=== PATIENT | male | born 1980 | race Caucasian/White ===

== ENCOUNTER 2021-02-03 21:10 | Inpatient (IN) | payer MEDICAID, SELFPAY ==
[2021-02-03 21:11] VITALS: BP 132/81; PULSE 100; RESP 18; TEMP 36.3; O2SAT 98; BMI 22.8
--- NOTE | 2021-02-03 23:29 | EKG12_ITS ---
Test Reason : SUBSTANCE ABUSE Blood Pressure : / mmHG Vent. Rate : 064 BPM Atrial Rate : 064 BPM P-R Int : 128 ms QRS Dur : 090 ms QT Int : 372 ms P-R-T Axes : -05 053 049 degrees QTc Int : 383 ms Normal sinus rhythm Normal ECG Confirmed by SOTO VELOZ, RAMAN ([id number]), health editor HANNA PHILLIPS ([id number]) on 02/09/2021 6:38:04 AM Referred By: NICHOLAS Confirmed By:RAMAN VALERA MD
--- NOTE | 2021-02-03 23:29 | EX.ED.DYSGE1 ---
HPI History of Present Illness Chief Complaint: Substance Abuse Informant: patient Narrative Narrative: 40-year-old male originally from [place] has been living in [place] for the last couple years heard about a [facility] recovery program here in [place]. He showed up in [place] today. He states that they told him about the alcohol detox program here at the hospital and he would like detox from alcohol. He notes his last alcoholic drink was around 0100 hours. He states he drinks 7-8 beers a day as well as a pint of liquor. He feels generally itchy. He notes he is an epileptic and takes Dilantin at night [facility] Medical History (Updated 02/03/21 @ 23:51 by Crista Wood) Anxiety Depression Epilepsy Home Medications phenytoin sodium extended [Dilantin Extended] 300 mg PO DAILY 02/03/21 [History Last Taken Unknown] Allergy/AdvReac Type Severity Reaction Status Date / Time No Known Allergies Allergy Verified 02/03/21 23:50 Social History (Updated 02/03/21 @ 23:[address] Chandan Harper, ) Smoking Status: Current every day smoker tobacco type: cigarettes alcohol intake: current alcohol intake frequency: 3 or more drinks per day ROS ROS ED Constitutional Constitutional ED: Denies chills or weight loss Eyes Eyes: Denies change in vision or diplopia ENT ENT ED: Denies ear pain, rhinorrhea or sore throat Cardiovascular Cardiovascular: Denies chest pain, orthopnea, palpitations or racing heartbeat Respiratory/Chest Respiratory/Chest: Denies cough, dyspnea or orthopnea Gastrointestinal Gastrointestinal: Reports nausea; Denies abdominal pain, diarrhea or vomiting Genitourinary Genitourinary ED: Denies dysuria, hematuria or urinary frequency Musculoskeletal Musculoskeletal: Denies arthralgias or myalgias Integumentary Reports other Details: Pruritus ; Denies abscess or rash Neurologic Neurologic: Denies headache(s) or weakness Psychiatric Psychiatric: Denies anxiety, depression, suicidal ideation or suicidal thoughts Endocrine Endocrinology: Denies polydipsia, polyphagia or polyuria Allergic/Immunologic Allergic/Immunologic ED: Denies mouth swelling, tongue swelling or urticaria EXAM Physical Exam Const Vital Signs: 02/03/21 21:11 Temperature 97.3 F L Temperature Source Temporal Pulse Rate 100 Respiratory Rate 18 Blood Pressure 132/81 H Blood Pressure Mean 98 Pulse Ox 98 Oxygen Delivery Method Room Air Positive well nourished and well developed General Appearance ED: well developed HEENT Reports normocephalic, head/scalp atraumatic and moist mucous membranes Eyes PERRL and EOMs intact bilaterally Neck no lymphadenopathy, supple and no JVD Resp normal respiratory effort and clear to auscultation bilaterally Cardio regular rate, regular rhythm and no murmurs GI normal to inspection, nondistended, normoactive bowel sounds and non-tender Palpation: soft Back/Spine no CVA tenderness and normal ROM Extremity normal to inspection General Extremety ED: Negative for edema General Extremity: Negative for edema Neuro oriented x3 and CN's II-XII intact bilaterally Sensorium / Orientation: alert Motor Exam: strength 5/5 throughout Psych mental status grossly normal Mood & Affect: Negative for depressed or tearful Skin no rashes or lesions noted and no wounds MDM MDM MDM Narrative Medical decision making narrative: Patient agrees to the rules of the program. I will speak with the hospitalist after his screening labs. Lab Data Attestation: I reviewed the patient's lab results. Labs: Laboratory Results - last 24 hr 02/03/21 02/03/21 02/03/21 23:41 23:46 23:46 WBC 7.7 RBC 4.46 L Hgb 13.1 Hct 38.6 L MCV 86.5 MCH 29.4 MCHC 33.9 RDW Std Deviation 48.8 H RDW Coeff of Aline 15.5 H Plt Count 328 MPV 9.0 Immature Gran % (Auto) 0.400 Neut % (Auto) 52.7 Lymph % (Auto) 36.5 [place] % (Auto) 7.8 Eos % (Auto) 1.8 Baso % (Auto) 0.8 Absolute Neuts (auto) 4.1 Absolute Lymphs (auto) 2.82 Nucleated RBC % 0 Sodium 138 Potassium 3.8 Chloride 104 Carbon Dioxide 27.0 Anion Gap 7 BUN 12 Creatinine 0.99 Estim Creat Clear Calc 109.05 Est GFR (MDRD) Af Amer 109 Est GFR (MDRD) Non-Af 90 BUN/Creatinine Ratio 12.2 Glucose 97 Calcium 8.6 Total Bilirubin 0.30 AST 204 H ALT 96 H Alkaline Phosphatase 155 H Total Protein 7.4 Albumin 3.6 Globulin 3.8 Albumin/Globulin Ratio 0.9 Phenytoin 2.7 L Ur Drug Screen Comment Ethyl Alcohol 02/03/21 02/04/21 23:46 00:35 WBC RBC Hgb Hct MCV MCH MCHC RDW Std Deviation RDW Coeff of Aline Plt Count MPV Immature Gran % (Auto) Neut % (Auto) Lymph % (Auto) [place] % (Auto) Eos % (Auto) Baso % (Auto) Absolute Neuts (auto) Absolute Lymphs (auto) Nucleated RBC % Sodium Potassium Chloride Carbon Dioxide Anion Gap BUN Creatinine Estim Creat Clear Calc Est GFR (MDRD) Af Amer Est GFR (MDRD) Non-Af BUN/Creatinine Ratio Glucose Calcium Total Bilirubin AST ALT Alkaline Phosphatase Total Protein Albumin Globulin Albumin/Globulin Ratio Phenytoin Ur Drug Screen Comment Ethyl Alcohol < 3.0 EKG Initial EKG: Attestation: I personally reviewed and interpreted this EKG as follows: Comments: Sinus rhythm with a ventricular rate of 64 bpm. No concerning features of ACS or ectopy noted Discharge Plan Dx/Rx/DC Orders Clinical Impression: Alcohol abuse Disposition Disposition: Acute Care Hospital [facility]
[2021-02-03 23:50] LABS: Absolute Lymphocyte Count 2.82 X10^3/uL (0.83-4.51); Absolute Neutrophil Count 4.1 X10^3/uL (2.0-7.7); Basophil# 0.06 X10^3/uL; Basophil% 0.8 % (0-1); Eosinophil# 0.14 X10^3/uL; Eosinophils% 1.8 % (0-5); Hematocrit 38.6 % (40-54); Hemoglobin 13.1 g/dL (13.0-16.5); Lymphocyte # 2.82 X10^3/ul (0.83-4.51); Lymphocyte % 36.5 % (19-41); Mean Corp Hgb Conc 33.9 g/dL (32-36); Mean Corpuscular Hgb 29.4 pg (27.0-32.0); Mean Corpuscular Volume 86.5 fL (80-94); Monocyte% 7.8 % (0-10); NRBC Flagged by Analyzer 0 % (0-5); Neutrophil # 4.07 X10^3/uL (2.7-7.7); Neutrophil % 52.7 % (47-70); Platelet Count 328 K/mm3 (150-450); RBC Distribution Width CV 15.5 % (11.6-14.6); RBC Distribution Width SD 48.8 fl (35.1-43.9); Red Blood Count 4.46 M/mm3 (4.6-6.2); White Blood Count 7.7 K/mm3 (4.4-11.0)
[2021-02-03] MEDS: hydrOXYzine PAM 25 MG Capsule 50 MG PO (23:50)
[2021-02-04] VITALS (9 sets, daily range): BP systolic 111–132; BP diastolic 58–78; PULSE 69–91; RESP 15–16; TEMP 35.9–37; O2SAT 96–100; BMI 21.8
[2021-02-04 00:21] LABS: ALB/GLOB Ratio 0.9 RATIO (0.9-2.4); AST(SGOT) 204 U/L (15-37); Alanine Aminotransfer ALT/SGPT 96 U/L (16-61); Albumin, Serum 3.6 g/dL (3.2-5.0); Alkaline Phosphatase 155 U/L (45-117); Anion Gap 7 (5-15); BUN 12 mg/dL (7-18); BUN/Creat Ratio 12.2 RATIO (10-20); Calcium,Total 8.6 mg/dL (8.5-10.1); Chloride 104 mmol/L (98-107); Creatinine, Serum 0.99 mg/dL (0.70-1.30); EST Glomerular Filtration Rate 90 mL/min (>60); Est Glom Filt Rate - Afr Amer 109 mL/min (>60); Estimated Creatinine Clearance 109.05 ml/min; Globulin 3.8 g/dL (2.2-4.2); Glucose 97 mg/dL (74-106); Potassium 3.8 mmol/L (3.5-5.1); Protein, Total 7.4 g/dL (6.4-8.2); Sodium Level 138 mmol/L (136-145)
[2021-02-04 00:42] LABS: Alcohol, Blood (Medical)-Serum < 3.0 mg/dL
--- NOTE | 2021-02-04 00:56 | PCM.HP.STD ---
HPI - General General Date of Admission: 02/04/21 HPI Narrative LAWRENCE BORGES, is a 40 M with a significant history of tobacco abuse; marijuana abuse seizure disorder and alcoholism who presents to emergency department for help with alcohol detoxification. Patient has been drinking for about 20 years. He [facility] to a [facility] with detox[facility] and he was asked to come to the emergency department. He drinks about a pint of liquor and 6 pounds of regular beer every day. Last time he drank was a day before presentation. He reports withdrawal symptoms of itchiness and jitteriness. [facility] Medical History (Updated 02/04/21 @ 05:[address] Pk Beasley MD) Anxiety Depression Epilepsy Home Medications phenytoin sodium extended [Dilantin Extended] 300 mg PO DAILY 02/03/21 [History Last Taken Unknown] Allergy/AdvReac Type Severity Reaction Status Date / Time No Known Allergies Allergy Verified 02/03/21 23:50 other (Denies knowledge of maternal or paternal medical history.) no surgical history Social History Smoking Status: Current every day smoker tobacco type: cigarettes alcohol intake: current alcohol intake frequency: 3 or more drinks per day ROS ROS Narrative Constitutional: Denies fever, chills, fatigue, anorexia and change in weight Eyes: Denies blurry vision, change in eye color, change in vision, discharge from eye(s), double vision, erythema, eye pain, loss of vision or other HEENT: Denies abnormal hearing, dysphagia, ear pain, epistaxis, headache(s), hearing loss, nasal congestion, nasal discharge, post nasal drip, sinus pressure, sore throat or other Cardiovascular: Denies chest pain or palpitations. Denies dyspnea on exertion, orthopnea and paroxysmal nocturnal dyspnea Respiratory/Chest: Denies cough, excessive phlegm production, shortness of breath with exertion and wheezing Gastrointestinal: Denies abdominal pain, coffee ground emesis, constipation, diarrhea, dyspepsia, hematemesis, hematochezia, loose stools, melena, nausea, vomiting or other Genitourinary: Denies burning urination, difficulty urinating, dysuria, hematuria, nocturia, urinary frequency, urinary hesitancy, urinary incontinence, urinary urgency or other Musculoskeletal: Denies arthralgias, back pain, joint pain, joint stiffness, joint swelling, myalgias, neck pain or other Neurologic: Denies abnormal gait, abnormal speech, confusion, disequilibrium, dizziness, focal weakness, headache(s), numbness, paresthesias, seizure-like activity, seizures, syncope, tingling, or other Psychiatric: Reports anxiety. Denies depression, homicidal ideation, suicidal ideation or other Endocrinology: Denies change in body appearance, cold intolerance, excessive sweating, heat intolerance, polydipsia, polyuria or other Hematologic/Lymphatic: Denies anemia, easy bleeding, easy bruising, lymphadenopathy or other Integumentary: Denies rashes Allergic/Immunologic: Denies rhinitis, hives, eczema, asthma or other Vital Signs Vital Signs Vital Signs: 02/03/21 21:11 Temperature 97.3 F L Temperature Source Temporal Pulse Rate 100 Respiratory Rate 18 Blood Pressure 132/81 H Blood Pressure Mean 98 Pulse Ox 98 Oxygen Delivery Method Room Air Weight Weight: 76.204 kg Body Mass Index (BMI) 22.8 Physical Exam Narrative Physical exam: General: Well-nourished, well-developed. Head: Normocephalic, atraumatic, no tenderness Eyes: PERRLA, EOMI ENT, no trauma, moist mucous membranes, no rhinorrhea Neck: Nontender, full range of motion, no spinal tenderness, deformities, step-off CVS: Regular rate and rhythm. S1-S2 present. No murmur, gallop or rub. Respiratory : clear to auscultation bilaterally, chest wall nontender, no wheezing Abdomen: Soft, nontender, nondistended, normal bowel sounds, no masses : Deferred Back: Nontender, no CVA tenderness, no midline spinal tenderness, deformities, step-offs Extremities: Nontender full range of motion, no trauma Skin: Normal color, no trauma, abrasions Neuro: Alert, oriented, cranial nerves II through XII grossly intact. Psychiatry: Normal mood. Normal affect. Not depressed. Not anxious. Results Lab / Micro Data Result Diagrams: 02/03/21 23:46 02/03/21 23:46 Labs: Laboratory Results - last 24 hr 02/03/21 23:46: WBC 7.7, RBC 4.46 L, Hgb 13.1, Hct 38.6 L, MCV 86.5, MCH 29.4, MCHC 33.9, RDW Std Deviation 48.8 H, RDW Coeff of Aline 15.5 H, Plt Count 328, MPV 9.0, Immature Gran % (Auto) 0.400, Neut % (Auto) 52.7, Lymph % (Auto) 36.5, [place] % (Auto) 7.8, Eos % (Auto) 1.8, Baso % (Auto) 0.8, Absolute Neuts (auto) 4.1, Absolute Lymphs (auto) 2.82, Nucleated RBC % 0 02/03/21 23:46: Sodium 138, Potassium 3.8, Chloride 104, Carbon Dioxide 27.0, Anion Gap 7, BUN 12, Creatinine 0.99, Estim Creat Clear Calc 109.05, Est GFR (MDRD) Af Amer 109, Est GFR (MDRD) Non-Af 90, BUN/Creatinine Ratio 12.2, Glucose 97, Calcium 8.6, Total Bilirubin 0.30, AST 204 H, ALT 96 H, Alkaline Phosphatase 155 H, Total Protein 7.4, Albumin 3.6, Globulin 3.8, Albumin/Globulin Ratio 0.9 02/03/21 23:46: Ethyl Alcohol < 3.0 02/04/21 00:35: Ur Drug Screen Comment Assessment & Plan Assessment/Plan (1) Alcohol abuse: (2) Tobacco abuse: (3) Cannabis abuse: (4) Epilepsy: QUALIFIERS: Epilepsy type: other Intractability: not intractable Status epilepticus: without status epilepticus Qualified Code(s): G40.802 - Other epilepsy, not intractable, without status epilepticus PLAN: Alcohol dependence and desire for detoxification Patient be started on phenobarbital and other adjunctive medications: Gabapentin as needed; dicyclomine as needed; Vistaril as needed; Imodium as needed; trazodone as needed; Zofran as needed; scheduled thiamine; and schedule folic acid. Monitor CIWA score Tobacco abuse Counseled Declined nicotine patch prescribed. History of epilepsy Dilantin continued DVT prophylaxis Low risk Encourage to ambulate Charges/Coding Visit Charges Inpatient E&M: 70517 Init Hosp L2
[2021-02-04 01:13] LABS: Phenytoin (Dilantin) Level 2.7 mL (10.0-20.0)
[2021-02-04 01:51] LABS: Amphetamine Urine VISTA NEGATIVE (<1000 ng/mL); Barbiturate Urine VISTA NEGATIVE (< 200 ng/mL); Benzodiazepine Urine VISTA NEGATIVE (< 200 ng/mL); Cocaine Urine VISTA NEGATIVE (< 300 ng/mL); Ecstacy Urine VISTA NEGATIVE (< 500 ng/mL); Methadone Urine VISTA NEGATIVE (< 300 ng/mL); PCP Urine VISTA NEGATIVE (< 25 ng/mL); THC Urine VISTA POSITIVE (< 50 ng/mL); Vista UDS pH Range 6
[2021-02-04] MEDS: Phenobarbital 32.4 MG Tablet 64.8 MG PO ×6 (03:20→23:47)
[2021-02-04] MEDS: Phenytoin Na 100 MG Capsule 300 MG PO (09:22)
[2021-02-04] MEDS: Thiamine Hydrochloride 100 MG Tablet PO (09:23)
[2021-02-04] MEDS: Folic Acid 1 MG Tablet PO (09:23)
--- NOTE | 2021-02-04 09:25 | PCS.PANDOC ---
PANDEMIC DOCUMENTATION INITIATED: Date: 12/07/2020 Time: 1900 pandemic charting
--- NOTE | 2021-02-04 10:59 | ADDICTION ---
This writer producer met with PT to conduct ASAM, MSE, AUDIT assessments and to plan for d/c. PT A+Ox4 and participated actively. PT plans to f/u with residential treatment once placement is found.
--- NOTE | 2021-02-04 11:14 | ADDICTION ---
This automobile service writer met with PT to conduct ASAM, MSE, AUDIT, DUDIT assessments and to plan for d/c. PT A+Ox4 and participated actively. PT plans to f/u with residential treatment once placement is found.
[2021-02-05 03:44] VITALS: BP 133/76; PULSE 69; RESP 18; TEMP 36.5; O2SAT 98
[2021-02-05] MEDS: Phenobarbital 32.4 MG Tablet 64.8 MG PO ×3 (03:45→11:33)
[2021-02-05] MEDS: Phenytoin Na 100 MG Capsule 300 MG PO (08:01)
[2021-02-05] MEDS: Folic Acid 1 MG Tablet PO (08:01)
[2021-02-05] MEDS: Thiamine Hydrochloride 100 MG Tablet PO (08:01)
[2021-02-05 10:00] VITALS: BP 104/61; PULSE 87; RESP 16; TEMP 36.3; O2SAT 98
--- NOTE | 2021-02-05 10:55 | PCM.PN.HOSP ---
Subjective Subjective Doing well, no issues overnight. CIWA of 2 this morning Objective Data Objective Data Vital Signs: Vital Signs Temp Pulse Resp BP Pulse Ox 97.7 F L 69 18 133/76 H 98 02/05/21 03:44 02/05/21 03:44 02/05/21 03:44 02/05/21 03:44 02/05/21 03:44 Oxygen Delivery Method Room Air Weight: 161 lb 3.2 oz Body Mass Index (BMI) 21.8 Lab / Micro Data Result Diagrams: 02/03/21 23:46 02/03/21 23:46 Physical Exam Const alert, oriented x3 and no apparent distress General Appearance: cooperative HEENT normocephalic and moist oral mucous membranes Eyes PERRL, EOMs intact bilaterally and conjunctivae normal Neck supple and no JVD Resp normal respiratory effort, no retractions, no use of accessory muscles and clear to auscultation bilaterally Auscultation: Negative for crackles, rales, rhonchi or wheezes Cardio regular rate, regular rhythm, S1 normal heart sound, S2 normal heart sound and no murmurs GI soft to palpation, non-tender and non-distended; Negative for hepatosplenomegaly Extremity no clubbing, cyanosis or edema Skin no rashes or lesions noted Neuro no focal motor deficits and no sensory deficits noted Psych affect normal Appearance: appropriate Assessment & Plan Assessment/Plan (1) Alcohol abuse: (2) Tobacco abuse: (3) Cannabis abuse: (4) Epilepsy: QUALIFIERS: Epilepsy type: other Intractability: not intractable Status epilepticus: without status epilepticus Qualified Code(s): G40.802 - Other epilepsy, not intractable, without status epilepticus PLAN: 1. Alcohol withdrawal/tobacco abuse -Continue with the alcohol withdrawal protocol -CIWA scores are stable this morning -We will have him follow-up with 180, may need residential treatment if placement can be found -Discussed tobacco cessation, he did not want a nicotine 2. History of epilepsy -Stable -Continue with Dilantin DVT: Ambulation Charges/Coding Visit Charges Inpatient E&M: 79317 Subs Hosp L2
== END 2021-02-05 12:30 | disposition left against medical advice (07) | DRG 770 ==
LOC: ED 02-04 01:06 → MS2 02-04 01:07
PROVIDERS: Admitting Provider Hospitalist; Emergency Provider Emergency Medicine; Visit Provider Family Medicine
DX: F10.239 Alcohol dependence with withdrawal, unspecified (principal); F12.10 Cannabis abuse, uncomplicated; Y90.0 Blood alcohol level of less than 20 mg/100 ml; F17.210 Nicotine dependence, cigarettes, uncomplicated; G40.802 Other epilepsy, not intractable, without status epilepticus; Z53.29 Procedure and treatment not carried out because of patient's decision for other reasons
CPT/HCPCS: 80053; 80185; 80307; 82077; 85025; 93005; 99284; 99406; A4216